=== PATIENT | female | born 1990 | race Caucasian/White ===

== ENCOUNTER 2016-10-08 02:14 | Inpatient (IN) ==
[2016-10-08] MEDS ORDERED: MEPERIDINE 50 MG/1 ML VIAL IV PRN (02:35)
[2016-10-08] MEDS ORDERED: BUTORPHANOL 2 MG/ML VIAL IV PRN (02:35)
[2016-10-08] MEDS ORDERED: ONDANSETRON 4 MG/2 ML VIAL IV PRN ×2 (02:35→03:49)
[2016-10-08] MEDS ORDERED: FAMOTIDINE 20 MG/2 ML VIAL IV ONE (02:37)
[2016-10-08] MEDS ORDERED: CITRIC ACID/SODIUM CITRATE 30 ML UDCUP PO ONE (02:37)
[2016-10-08] MEDS ORDERED: AMPICILLIN 2,000 MG VIAL ONE (02:57)
[2016-10-08] MEDS ORDERED: SODIUM CHLORIDE 0.9% 100 ML IV ONE (02:57)
[2016-10-08] MEDS ORDERED: LACTATED RINGERS 1,000 ML IV SCH (03:00)
[2016-10-08 03:18] LABS: Apearance,Urine Slightly Hazy (Clear); Bilirubin,Urine Negative (Negative); Blood, Urine Moderate mg/dL (Negative); Calcium Oxalate Crystals,Urine Occasional /HPF (Few); Glucose,Urine (UA) Negative (Negative); Ketones,Urine 20 mg/dL (Negative); Mucus,Urine Many /LPF (Occasional); Nitrite,Urine Negative (Negative); Protein,Urine 100 MG/DL; RBC,Urine 129 /HPF (0-4); Squamous Epithelial Cell,Urine Occasional /HPF (0-10); Urine Color Amber (Yellow); Urine Specific Gravity 1.026 (1.001-1.035); WBC,Urine 3 /HPF (0-6)
[2016-10-08 03:31] LABS: Basophils % 0.3 % (0.0-0.8); Eosinophils # 0.2 10*3/uL (0.0-0.87); Eosinophils % 1.3 % (0.00-10.9); Hematocrit 36.8 VOL% (35.7-47.0); Hemoglobin 12.7 GM/DL (12.0-16.0); Immature Granulocytes % 0.6 %; Immature Granulocytes Absolute 0.09 #; Lymphocytes # 2.6 10*3/uL (1.4-4.0); Lymphocytes % 17.2 % (21.3-54.2); Mean Corpuscular HGB Conc 34.5 GM/DL (32-36); Mean Corpuscular Hemoglobin 31 PG (27-34); Mean Corpuscular Volume 90.9 FL (87-102); Mean Platelet Volume 9.9 FL (9.6-12.0); Monocytes # 0.8 10*3/uL (0.11-0.8); Monocytes % 5.2 % (1.7-12.7); Neutrophils # 11.4 10*3/uL (1.4-7.4); Neutrophils % 75.4 % (38.7-73.9); Platelet Count 221 T/CUMM (130-400); Red Blood Count 4.05 MC/CUMM (3.8-5.5); Red Cell Distribution Width 13.2 % (9.3-17.3); White Blood Count 15.1 T/CUMM (4-12)
[2016-10-08] MEDS ORDERED: OXYTOCIN/LR 20 UNIT/1,000 ML BAG IV ONE ×3 (03:32→09:15)
--- NOTE | 2016-10-08 03:42 | OB/GYN History & Physical ---
History of Present Illness Chief complaint: Active labor, 38 weeks and 6 days History of present illness: Ms. Ayala is a 26 year old female 3 para 2 who presents in active labor 7 8 cm dilated. Estimated gestational age is 38 weeks and 6 days. Patient had limited care. Her estimated date of confinement is 10/16/2016. Last visit was greater than 1 month ago. Fetus is active, spontaneous rupture membranes thick meconium staining. Home Medications Medication Instructions Recorded Confirmed Type No Known Home Medications [No 10/08/16 10/08/16 History Known Home Medications] Allergies Allergy/AdvReac Type Severity Reaction Status Date / Time No Known Allergies Allergy Verified 10/08/16 02:26 Exam MANAGER ORDER - Constitutional General appearance: mild distress - Antepartum / Post Antepartum Exam Cervix - Dilatation: 7, 8 cm Rupture: Thick meconium staining Heart Rate: Category 1 - Head Head exam: Present: normal inspection - Eye Eye exam: Present: EOMI Pupils: Present: DAO - ENT ENT exam: Present: normal exam - Neck Neck exam: Present: normal inspection - Respiratory Respiratory exam: Present: clear to auscultation bilaterally - Breast Breasts: as per HPI Menstruation: as per HPI - Cardiovascular Cardiovascular exam: Present: regular rate and rhythm - GI/Abdominal GI/Abdominal exam: Present: normal bowel sounds, other - Extremities Exam Extremities exam: Present: normal inspection - Back Exam Back exam: Present: normal inspection - Neurological Exam Neurological exam: Present: alert - Psychiatric Psychiatric exam: Present: normal affect - Skin Skin exam: Present: normal color Assessment and Plan (1) Active labor Status: Acute Assessment and plan: Anticipate spontaneous vaginal delivery Current Visit: Yes (2) Late care Status: Acute Current Visit: Yes (3) Positive urine drug screen Status: Acute Current Visit: Yes Results - Labs CBC & BMP: 10/08/16 03:21
--- NOTE | 2016-10-08 03:48 | Event Note ---
Delivery note Stage I of labor Admitted at 7 8 cm dilated Spontaneous rupture membranes, thick meconium staining IV fluids External monitoring Admitted at 2:25 AM Stage II Delivery at 3:33 AM Male infant, Apgars 8 at 1 minute 9 at 5 minutes Thick meconium staining suction with a bulb suction on the perineum Nuchal cord 1 around the neck times the body and times the leg True knot noted in the cord as well Cord blood and cord gas obtained Stage III Placenta delivered spontaneously Sent to lab for further evaluation 3 cord vessels Blood loss less than 250 Mother stable Nurses present in attendance nurses present in attendance
[2016-10-08] MEDS ORDERED: MEASLES/MUMPS/RUBELLA VACCINE 0.5 ML VIAL SUBCUT ONE (03:49)
[2016-10-08] MEDS ORDERED: DIPH/TET/ACEL PERT BOOSTER VACCINE 0.5 ML VIAL IM ONE (03:49)
[2016-10-08] MEDS ORDERED: LANOLIN 50% CREAM 0.3 OZ TUBE TOP PRN (03:49)
[2016-10-08] MEDS ORDERED: RHO(D) IMMUNE GLOBULIN 300 MCG SYRINGE IM ONE (03:49)
[2016-10-08] MEDS ORDERED: BISACODYL 10 MG SUPP RECTAL PRN (03:49)
[2016-10-08] MEDS ORDERED: WITCH HAZEL PADS 100/JAR TOP PRN (03:49)
[2016-10-08] MEDS ORDERED: ACETAMINOPHEN 325 MG TABLET PO PRN (03:49)
[2016-10-08] MEDS ORDERED: IBUPROFEN 800 MG TABLET PO PRN (03:49)
[2016-10-08] MEDS ORDERED: BENZOCAINE 20%/MENTHOL 0.5% SPRAY 56 GM CAN TOP PRN (03:49)
[2016-10-08] MEDS ORDERED: oxyCODONE/ACETAMINOPHEN 5-325 MG TABLET PO PRN ×2 (03:49)
[2016-10-08] MEDS ORDERED: HYDROCORTISONE 2.5% RECTAL CREAM 30 GM TUBE TOP PRN (03:49)
[2016-10-08 03:54] LABS: Albumin 2.7 G/DL (3.4-5.0); Bilirubin,Total 0.6 MG/DL (0.2-1.0); Calcium 8.7 MG/DL (8.5-10.1); Osmolality,Calculated 273.7 MOS/KG (273-304); Potassium 3.2 MMOL/L (3.5-5.1); Total Protein 6.1 G/DL (6.4-8.3)
[2016-10-08 03:55] LABS: Cord Venous Blood HCO3 20.6 MMOL/L; Cord Venous Blood PCO2 37.9 MMHG; Cord Venous Blood PO2 29.7 MMHG
[2016-10-08 03:56] LABS: Cord Arterial Blood HCO3 19.8 MMOL/L
[2016-10-08 04:08] LABS: Barbiturates Screen,Urine Negative (Negative); Benzodiazepines Screen,Urine Negative (Negative); Cannabinoid Screen,Urine Positive (Negative); Opiate Screen,Urine Negative (Negative); Phencyclidine Screen,Urine Negative (Negative)
[2016-10-08 05:55] LABS: Basophils # 0.1 10*3/uL (0.0-0.2); Basophils % 0.3 % (0.0-0.8); Eosinophils % 0.2 % (0.00-10.9); Hematocrit 36.1 VOL% (35.7-47.0); Hemoglobin 12.5 GM/DL (12.0-16.0); Immature Granulocytes % 0.5 %; Immature Granulocytes Absolute 0.09 #; Lymphocytes # 1.3 10*3/uL (1.4-4.0); Lymphocytes % 6.6 % (21.3-54.2); Mean Corpuscular HGB Conc 34.6 GM/DL (32-36); Mean Corpuscular Hemoglobin 31 PG (27-34); Mean Corpuscular Volume 90.5 FL (87-102); Mean Platelet Volume 9.9 FL (9.6-12.0); Monocytes # 0.7 10*3/uL (0.11-0.8); Monocytes % 3.4 % (1.7-12.7); Neutrophils # 17.4 10*3/uL (1.4-7.4); Platelet Count 229 T/CUMM (130-400); Red Blood Count 3.99 MC/CUMM (3.8-5.5); White Blood Count 19.6 T/CUMM (4-12)
[2016-10-08] MEDS: DOCUSATE SODIUM 100 MG CAPSULE PO SCH ×2 (10:10→21:59)
[2016-10-09 06:52] LABS: Basophils # 0.1 10*3/uL (0.0-0.2); Basophils % 0.4 % (0.0-0.8); Eosinophils # 0.5 10*3/uL (0.0-0.87); Hematocrit 33.7 VOL% (35.7-47.0); Hemoglobin 11.7 GM/DL (12.0-16.0); Immature Granulocytes % 0.4 %; Immature Granulocytes Absolute 0.05 #; Lymphocytes % 34.5 % (21.3-54.2); Mean Corpuscular HGB Conc 34.7 GM/DL (32-36); Mean Corpuscular Hemoglobin 32 PG (27-34); Mean Corpuscular Volume 91.1 FL (87-102); Mean Platelet Volume 10.1 FL (9.6-12.0); Monocytes # 0.8 10*3/uL (0.11-0.8); Monocytes % 6.6 % (1.7-12.7); Neutrophils # 6.2 10*3/uL (1.4-7.4); Neutrophils % 54.1 % (38.7-73.9); Platelet Count 221 T/CUMM (130-400); Red Cell Distribution Width 13.3 % (9.3-17.3); White Blood Count 11.5 T/CUMM (4-12)
[2016-10-09] MEDS: DOCUSATE SODIUM 100 MG CAPSULE PO SCH ×2 (08:04→21:29)
--- NOTE | 2016-10-09 11:18 | Progress Note ---
Assessment and Plan (1) Active labor Status: Acute Assessment and plan: Anticipate spontaneous vaginal delivery Current Visit: Yes (2) Late care Status: Acute Current Visit: Yes (3) Positive urine drug screen Status: Acute Current Visit: Yes Family Medicine PN Sub Interval history: Status post vaginal , day #1 Patient is doing well ambulating, voiding, passing bowel movements. Abdomen soft uterus firm Extremities well within normal limits neurologic grossly intact Assessment and plan Possible discharge in a.m. Exam (Progress Note) - Constitutional Vitals: Period Temp Pulse Resp BP Sys/Haines Pulse Ox Last 24 Hr 97.1 F-98.4 F 62-92 18-20 98-123/67-80 96-98 Results - Labs CBC & BMP: 10/09/16 06:20 10/08/16 03:21 Quality Measures - VTE Contraindication to Pharmacological VTE Prophylaxis: Clinical assessment deems Pt at low risk, no prophalaxis needed
--- NOTE | 2016-10-09 12:19 | Pathology Report from [facility] ---
[facility] ACCESSION # : [id number] PATIENT NAME : Yazmin Ayala ORDERING DR : CAIO TORRES MD CLINICAL HX: IUP @ 38.6 wks gestation; limited care, meconium fluid POST-OP DX: Same SPECIMEN INFO: Placenta GROSS DESCRIPTION: Received fresh labeled with the patients name and consists of a 414 gram placenta which measures 18.0 x 15.0 x 2.0 cm. membranes are mendieta, translucent with mild meconium staining noted. The umbilical cord measures 44.0 cm, and contains a true knot. The cord contains three vessels and is pericentrally inserted. The maternal surface is red-gonzalez and intact with scattered calcifications seen. Sectioning reveals no gross abnormalities. Sections submitted: A membranes and cord, B and maternal surfaces. DIAGNOSIS FOR YAZMIN AYALA: PLACENTA, MEMBRANES, UMBILICAL CORD: Focal placental infarction with dystrophic calcification, mild intervillous blood. Tri -vessel umbilical cord with a true knot. Membranes with focal chronic inflammation, attached blood and meconium staining. COLLECTED DATE: 10/08/2016 [facility] REPORT DATE: 10/09/2016 ELECTRONICALLY SIGNED BY: Priya Cordova M.D. 10/09/2016 - 11:47:51 DONNIE
[2016-10-10 07:41] VITALS: BP 129/75
[2016-10-10] MEDS: DOCUSATE SODIUM 100 MG CAPSULE PO SCH (09:07)
--- NOTE | 2016-10-10 10:03 | Discharge Summary ---
Hospital Course - Hospital Course Hospital Course: Routine PP course. No complaints this am. Ready to go home. Specialty Discharge - Follow Up or Referrals Follow up with: Erika Dean MD [Physician] - Discharge Plan - Discharge Data Disposition: Disch To Home/Self Care Condition at Discharge: Stable Discharge Diet: advance to your usual diet Activity: other (Routine PP) Weight Bearing at Discharge: full weight bearing Driving: no restrictions Contact your physician if you experience:: fever over 101, Difficulty voiding, Redness or swelling - Discharge Medications New Ibuprofen Tab [Motrin Tab] 800 mg PO Q6H PRN #20 tablet PRN Reason: Pain Moderate (4-7) - Follow Up or Referral Follow Up: Erika Dean MD [Physician] - - Forms/Instructions Instructions: Vaginal Delivery (DC), Bleeding (DC) Exam - Constitutional Vitals: Period Temp Pulse Resp BP Sys/Haines Pulse Ox Last 24 Hr 97 F-98.4 F 62-98 18-20 101-129/62-82 97-99 General appearance: normal weight, no acute distress - Head Head exam: Present: normal inspection, normocephalic - Eye Eye exam: Present: EOMI Pupils: Present: DAO - ENT ENT exam: Present: other (Multiple missing teeth) - GI/Abdominal GI/Abdominal exam: Present: soft. Absent: tenderness DS: Provider Date of admission: 10/08/16 03:30 Primary care physician: . No PCP Attending physician on admission: Erika Dean MD Consults: 10/08/16 02:35 Consult to Anesthesiology [CONS] Routine Consulting Provider: Reason for Anesthesiology: Epidural Consult Comment: Epidural for pain managment 10/08/16 03:49 Consult to Striper Machine [CONS] Routine Consult Striper Machine: Breast Feeding 10/09/16 07:24 Consult to Case Mgmt/Social Srvs [CONS] Routine Reason for Case Mgmt/Social Srvs: Other Consult Comment: positive drug screen Discharging clinician: Dede Hill MD
== END 2016-10-10 13:30 | disposition home or self-care (01) | DRG 560 ==
LOC: N.LDOUT 02:14 → N.LD 02:17 → N.OB 13:51
PROVIDERS: ADMIT Obstetrics & Gynecology; ATTEND Obstetrics & Gynecology